=== PATIENT | male | born 1940 | race American Indian/Alaskan Native ===

== ENCOUNTER 2019-09-06 11:13 | Emergency (ER) | payer MEDICARE ==
[2019-09-06 11:39] VITALS: BP 143/64
--- NOTE | 2019-09-06 14:03 | Event Note ---
ED Screening Note Date of service: 09/06/19 Time: 14:00 ED Screening Note: This is a 79 y.o. M. that presents to the ER with nausea, vomiting, and diarrhea for 4 days. Patient taking loperimide which slowed symptoms. Reports diffuse abdominal comfort. This initial assessment/diagnostic orders/clinical plan/treatment(s) is/are subject to change based on patients health status, clinical progression and re- assessment by fellow clinical providers in the ED. Further treatment and workup at subsequent clinical providers discretion. Patient/guardian urged not to elope from the ED as their condition may be serious if not clinically assessed and managed. Initial orders include: Labs
[2019-09-06 14:46] LABS: Hematocrit 40.5 % (35.5-45.6); Hemoglobin 13.6 gm/dl (11.8-15.2); Mean Corpuscular HGB Conc 34 % (32-34); Mean Corpuscular Volume 92 fl (84-94); Platelet Count 182 K/mm3 (140-440); Red Cell Distribution Width 13.7 % (13.2-15.2)
[2019-09-06 15:12] LABS: Alanine Aminotransferase 14 units/L (7-56); Albumin 3.4 g/dL (3.9-5); BUN/Creatinine Ratio 16; Blood Urea Nitrogen 19 mg/dL (9-20); Calcium 8.9 mg/dL (8.4-10.2); Hemolysis Index 19
[2019-09-06 15:45] LABS: Bilirubin,Urine NEG (Negative); Blood,Urine MOD (Negative); Color,Urine Amber (Yellow); Granular Casts,Urine 3 /LPF; Mucus,Urine 2+ /HPF; Urobilinogen,Urine < 2.0 mg/dL (<2.0)
[2019-09-06 16:11] LABS: Band Neutrophils # (Manual) 0.2 K/mm3; Basophils % (Manual) 0 % (0.0-1.8); Eosinophils % (Manual) 0 % (0.0-4.3); Large Platelets 1+; RBC Morphology Normal; Total Cells Counted 100
[2019-09-06 16:12] LABS: Platelet Estimate Consistent w Auto
[2019-09-06] MEDS: ONDANSETRON 4 MG/2 ML INJ IV ONE (20:09)
[2019-09-06] MEDS: SODIUM CHLORIDE 0.9% 1000 ML 1,000 ML IV ONE (20:09)
--- NOTE | 2019-09-06 21:36 | Cat Scan Report ---
CT ABDOMEN AND PELVIS WITH IV CONTRAST INDICATION: abd pain. COMPARISON: CT 08/14/2016. TECHNIQUE: All CT scans at this facility use dose modulation, automated exposure control, iterative reconstructi on or weight based dosing, when appropriate, to reduce radiation dose to as low as reasonably achieva ble. FINDINGS: Lung Bases: No significant abnormality. Skeletal System: No acute abnormality. ABDOMEN: Liver: Previously seen hypodense hepatic lesions are stable. No acute hepatic findings. Gallbladder: No significant abnormality. Bile Ducts: No significant abnormality. Pancreas: No significant abnormality. Spleen: No significant abnormality. Adrenals: No significant abnormality. Right Kidney: No significant abnormality. Left Kidney: No significant abnormality. Upper GI tract: There is a small hiatal hernia. Upper GI tract is otherwise unremarkable. Lymph Nodes: No significant adenopathy. Aorta: No significant abnormality. Additional Findings: There is trace pericolonic fluid along the right paracolic gutter. PELVIS: Colon: There is diffuse colonic wall thickening with pericolonic stranding and fluid. Urinary Bladder and Distal Ureters: Mild bladder wall thickening may be due to some degree of chronic outlet obstruction. Appendix: Not visualized. Lymph Nodes: No significant adenopathy. Additional Findings: Prostate is mildly enlarged. IMPRESSION: 1. Pancolitis. 2. Incidental findings, as above. Signer Name: Michele Chaparro MD Signed: 09/06/2019 9:31 PM Workstation Name: [id number]
--- NOTE | 2019-09-06 22:34 | Emergency Department Report ---
ED N/V/D HPI - General Chief complaint: Nausea/Vomiting/Diarrhea Stated complaint: FEVER/DIARRHEA/NOT EATING Time Seen by Provider: 09/06/19 13:59 Source: patient Mode of arrival: Ambulatory Limitations: No Limitations - History of Present Illness Initial comments: Mr. Terrazas is a 79-year-old -[place] male with a history of hypertension and asthma GERD appendectomy who presents for nausea vomiting diarrhea x 4 days. pt denies abd pain , is adamant about not being admitted into hospital, MD complaint: nausea, vomiting, diarrhea Onset/Timin -: week(s) Description of Vomiting: food contents Associated Abdominal Pain: Yes Location: LLQ, RLQ Radiation: none Severity: moderate Pain Scale: 4 Quality: cramping, aching Consistency: intermittent Improves with: rest Worsens with: eating Context: history of abdominal surg Associated Symptoms: nausea/vomiting - Related Data Previous Rx's Medication Instructions Recorded Last Taken Type Acetaminophen/Codeine [Tylenol #3] 1 tab PO TID PRN #15 tab 02/08/15 Unknown Rx cephALEXin [Keflex] 500 mg PO BID #10 capsule 02/08/15 Unknown Rx HYDROcodone/APAP 5-325 [[place] 1 each PO Q6HR PRN #12 tablet 08/14/16 Unknown Rx 5/325] Acetaminophen/Codeine [Tylenol 1 tab PO Q6H PRN #12 tab 09/06/19 Unknown Rx /Codeine # 3 tab] Ciprofloxacin HCl [Ciprofloxacin 500 mg PO BID 10 Days #20 tablet 09/06/19 Unknown Rx TAB] Omeprazole 40 mg PO DAILY #30 capsule. 09/06/19 Unknown Rx metroNIDAZOLE [Flagyl] 500 mg PO BID 10 Days #20 tab 09/06/19 Unknown Rx predniSONE [Deltasone] 40 mg PO QDAY 5 Days #10 tab 09/06/19 Unknown Rx Allergies Allergy/AdvReac Type Severity Reaction Status Date / Time No Known Allergies Allergy Verified 09/06/19 14:01 ED Review of Systems ROS: Stated complaint: FEVER/DIARRHEA/NOT EATING Other details as noted in HPI Constitutional: malaise. denies: chills, fever Eyes: denies: eye pain, eye discharge, vision change ENT: denies: ear pain, throat pain Respiratory: denies: cough, shortness of breath, wheezing Cardiovascular: denies: chest pain, palpitations Endocrine: no symptoms reported Gastrointestinal: abdominal pain, nausea, vomiting, diarrhea. denies: const ipation, hematemesis, melena Genitourinary: denies: urgency, dysuria Musculoskeletal: denies: back pain, joint swelling, arthralgia Skin: denies: rash, lesions Neurological: headache. denies: weakness, numbness, paresthesias, confusion, vertigo Psychiatric: as per HPI Hematological/Lymphatic: denies: easy bleeding, easy bruising ED Past Medical Hx - Past Medical History Previous Medical History?: Yes Hx Hypertension: Yes Hx Asthma: Yes - Surgical History Past Surgical History?: Yes Hx Appendectomy: Yes Additional Surgical History: lipoma removal - Social History Smoking Status: Never Smoker Substance Use Type: None - Medications Home Medications: Home Medications Medication Instructions Recorded Confirmed Last Taken Type Acetaminophen/Codeine [Tylenol #3] 1 tab PO TID PRN #15 tab 02/08/15 Unknown Rx cephALEXin [Keflex] 500 mg PO BID #10 capsule 02/08/15 Unknown Rx HYDROcodone/APAP 5-325 [[place] 1 each PO Q6HR PRN #12 tablet 08/14/16 Unknown Rx 5/325] Acetaminophen/Codeine [Tylenol 1 tab PO Q6H PRN #12 tab 09/06/19 Unknown Rx /Codeine # 3 tab] Ciprofloxacin HCl [Ciprofloxacin 500 mg PO BID 10 Days #20 tablet 09/06/19 Unknown Rx TAB] Omeprazole 40 mg PO DAILY #30 capsule. 09/06/19 Unknown Rx metroNIDAZOLE [Flagyl] 500 mg PO BID 10 Days #20 tab 09/06/19 Unknown Rx predniSONE [Deltasone] 40 mg PO QDAY 5 Days #10 tab 09/06/19 Unknown Rx ED Physical Exam - General Limitations: No Limitations General appearance: alert, in no apparent distress - Head Head exam: Present: atraumatic, normocephalic - Eye Eye exam: Present: normal appearance, PERRL, EOMI Pupils: Present: normal accommodation - ENT ENT exam: Present: mucous membranes moist - Neck Neck exam: Present: normal inspection, full ROM. Absent: tenderness - Respiratory Respiratory exam: Present: normal lung sounds bilaterally. Absent: respiratory distress, wheezes, stridor, chest wall tenderness - Cardiovascular Cardiovascular Exam: Present: regular rate, normal rhythm, normal heart sounds. Absent: systolic murmur, diastolic murmur, rubs, gallop - GI/Abdominal GI/Abdominal exam: Present: soft, tenderness (LLQ, RLQ , ), normal bowel sounds. Absent: guarding, rebound, rigid, bruit, hernia - Expanded GI/Abdominal Exam Expanded GI/Abdominal exam: Absent: psoas sign, obturator sign, heel tap sign, Meyer's sign, Rovsing's sign, tenderness at Mcburney's Point, ascites - Rectal Rectal exam: Present: deferred - Extremities Exam Extremities exam: Present: normal inspection, full ROM. Absent: tenderness - Back Exam Back exam: Present: normal inspection, full ROM. Absent: tenderness, CVA tenderness (R), CVA tenderness (L) - Neurological Exam Neurological exam: Present: alert, oriented X3, normal gait - Psychiatric Psychiatric exam: Present: normal affect, normal mood - Skin Skin exam: Present: warm, dry, intact, normal color. Absent: rash ED Course Vital Signs 09/06/19 11:37 Temperature 98.8 F Pulse Rate 75 Respiratory 18 Rate Blood Pressure 143/64 O2 Sat by Pulse 97 Oximetry ED Medical Decision Making - Lab Data Result diagrams: 09/06/19 14:29 09/06/19 14:29 Labs 09/06/19 09/06/19 09/06/19 14:29 14:29 15:22 WBC 8.1 RBC 4.40 Hgb 13.6 Hct 40.5 MCV 92 MCH 31 MCHC 34 RDW 13.7 Plt Count 182 [place] % (Auto) Riding Teacher Add Manual Diff Complete Total Counted 100 Seg Neuts % (Manual) 78.0 H Band Neutrophils % 3.0 Lymphocytes % (Manual) 3.0 L Reactive Lymphs % (Man) 0 Monocytes % (Manual) 16.0 H Eosinophils % (Manual) 0 Basophils % (Manual) 0 Metamyelocytes % 0 Myelocytes % 0 Promyelocytes % 0 Blast Cells % 0 Nucleated RBC % Not Reportable Seg Neutrophils # Man 6.3 Band Neutrophils # 0.2 Lymphocytes # (Manual) 0.2 L Abs React Lymphs (Man) 0.0 Monocytes # (Manual) 1.3 H Eosinophils # (Manual) 0.0 Basophils # (Manual) 0.0 Metamyelocytes # 0.0 Myelocytes # 0.0 Promyelocytes # 0.0 Blast Cells # 0.0 WBC Morphology Not Reportable Hypersegmented Neuts Not Reportable Hyposegmented Neuts Not Reportable Hypogranular Neuts Not Reportable Smudge Cells Not Reportable Toxic Granulation Not Reportable Toxic Vacuolation Not Reportable Dohle Bodies Not Reportable Pelger-Huet Anomaly Not Reportable Andree Rods Not Reportable Platelet Estimate Consistent w auto Clumped Platelets Not Reportable Plt Clumps, EDTA Not Reportable Large Platelets 1+ Giant Platelets Not Reportable Platelet Satelliting Not Reportable Plt Morphology Comment Not Reportable RBC Morphology Normal Dimorphic RBCs Not Reportable Polychromasia Not Reportable Hypochromasia Not Reportable Poikilocytosis Not Reportable Anisocytosis Not Reportable Microcytosis Not Reportable Macrocytosis Not Reportable Spherocytes Not Reportable Pappenheimer Bodies Not Reportable Sickle Cells Not Reportable Target Cells Not Reportable Tear Drop Cells Not Reportable Ovalocytes Not Reportable Helmet Cells Not Reportable Mcdonald-[place] Bodies Not Reportable Jellico Rings Not Reportable Tom Cells Not Reportable Bite Cells Not Reportable Crenated Cell Not Reportable Elliptocytes Not Reportable Acanthocytes (Spur) Not Reportable Rouleaux Not Reportable Hemoglobin C Crystals Not Reportable Schistocytes Not Reportable Malaria parasites Not Reportable Kofi Bodies Not Reportable Hem Pathologist Commnt No Sodium 134 L Potassium 4.3 Chloride 95.7 L Carbon Dioxide 20 L Anion Gap 23 BUN 19 Creatinine 1.2 Estimated GFR > 60 BUN/Creatinine Ratio 16 Glucose 109 H Calcium 8.9 Total Bilirubin 0.40 AST 15 ALT 14 Alkaline Phosphatase 64 Total Protein 6.8 Albumin 3.4 L Albumin/Globulin Ratio 1.0 Lipase 7 L Urine Color [place] Urine Turbidity Slightly-cloudy Urine pH 5.0 Ur Specific [place] 1.030 Urine Protein 100 mg/dl Urine Glucose (UA) Neg Urine Ketones 20 Urine Blood Mod Urine Nitrite Neg Urine Bilirubin Neg Urine Urobilinogen < 2.0 Ur Leukocyte Esterase Neg Urine WBC (Auto) 2.0 Urine RBC (Auto) 6.0 Granular Casts 3 Urine Mucus 2+ - Radiology Data Radiology results: report reviewed, image reviewed Ordering Physician: EMILIA VILLEGAS NP Date of Service: 09/06/19 Procedure(s): CT abdomen pelvis w con Accession Number(s): [id number] cc: EMILIA VILLEGAS NP CT ABDOMEN AND PELVIS WITH IV CONTRAST INDICATION: abd pain. COMPARISON: CT 08/14/2016. TECHNIQUE: All CT scans at this facility use dose modulation, automated exposure control, iterative reconstruction or weight based dosing, when appropriate, to reduce radiation dose to as low as reasonably achievable. FINDINGS: Lung Bases: No significant abnormality. Skeletal System: No acute abnormality. ABDOMEN: Liver: Previously seen hypodense hepatic lesions are stable. No acute hepatic findings. Gallbladder: No significant abnormality. Bile Ducts: No significant abnormality. Pancreas: No significant abnormality. Spleen: No significant abnormality. Adrenals: No significant abnormality. Right Kidney: No significant abnormality. Left Kidney: No significant abnormality. Upper GI tract: There is a small hiatal hernia. Upper GI tract is otherwise unremarkable. Lymph Nodes: No significant adenopathy. Aorta: No significant abnormality. Additional Findings: There is trace pericolonic fluid along the right paracolic gutter. PELVIS: Colon: There is diffuse colonic wall thickening with pericolonic stranding and fluid. Urinary Bladder and Distal Ureters: Mild bladder wall thickening may be due to some degree of chronic outlet obstruction. Appendix: Not visualized. Lymph Nodes: No significant adenopathy. Additional Findings: Prostate is mildly enlarged. IMPRESSION: 1. Pancolitis. 2. Incidental findings, as above. Signer Name: Michele Chaparro MD Signed: 09/06/2019 9:31 PM Workstation Name: [id number] Transcribed By: SHON Dictated By: Michele Chaparro MD Electronically Authenticated By: Michele Chaparro MD Signed Date/Time: 09/06/192130 DD/ 27 TD/TT: - Medical Decision Making CT demonstrates pancolitis lower colon, However, patient declines admission, patient advises that he will sign out AMA and follow up with GI tomorrow. I have discussed with patient and his the risk of signing out AMA including worsening condition ,sepsis ,and possible . patient and verbalized understanding of same. pt continues to decline admission. patient is currently alert and oriented 3 , and demonstrates sound decision-making capacity patient has had opportunity to ask and I have answered all questions to his and his 's satisfaction . patient will sign out AGAINST MEDICAL ADVICE at this time, patient will follow up with GI tomorrow, departed the emergency department with prescription for Cipro and Flagyl omeprazole and short burst prednisone. patient is in stable condition at this time, however he understands this condition may very well worsen. And has been given strict instructions to return to ED. Critical care attestation.: If time is entered above; I have spent that time in minutes in the direct care of this critically ill patient, excluding procedure time. ED Disposition Clinical Impression: Pancolitis Nausea and vomiting Qualifiers: Vomiting type: unspecified Vomiting Intractability: non-intractable Qualified Code(s): R11.2 - Nausea with vomiting, unspecified Disposition: DC- TO HOME OR SELFCARE Is pt being admited?: No Does the pt Need Aspirin: No Condition: Stable Instructions: Ulcerative Colitis (ED) Prescriptions: Ciprofloxacin HCl [Ciprofloxacin TAB] 500 mg PO BID 10 Days #20 tablet predniSONE [Deltasone] 40 mg PO QDAY 5 Days #10 tab metroNIDAZOLE [Flagyl] 500 mg PO BID 10 Days #20 tab Omeprazole 40 mg PO DAILY #30 capsule. Acetaminophen/Codeine [Tylenol /Codeine # 3 tab] 1 tab PO Q6H PRN #12 tab PRN Reason: pain Referrals: TIAN PRECIADO,GILBERT [Other] - 3-5 Days JERE HARTLEY MD [Staff Physician] - 3-5 Days [facility] [Provider Group] - 3-5 Days Forms: AMA Form
[2019-09-06] MEDS: dexAMETHasone 20 MG/5 ML VIAL IV ONE (22:39)
[2019-09-06] MEDS: PIPERACIL/TAZOBACTA 4.5/NS 100 4.5 GM/100 ML VIAL IV ONE (22:39)
== END 2019-09-07 00:10 | disposition left against medical advice (07) ==
LOC: ED 11:13
DX: K51.00 Ulcerative (chronic) pancolitis without complications (principal); R11.2 Nausea with vomiting, unspecified; I10 Essential (primary) hypertension; J45.909 Unspecified asthma, uncomplicated; Z90.49 Acquired absence of other specified parts of digestive tract; Z98.890 Other specified postprocedural states; Z79.899 Other long term (current) drug therapy
CPT/HCPCS: 36415; 74177; 80053; 81001; 83690; 85007; 85025; 96361; 96365; 96375; 99284; J1100; J2405; J2543; J7030; Q9967